=== PATIENT | male | born 1990 | race African-American/Black ===

== ENCOUNTER → 2019-02-07 | Outpatient (CLI) | payer OTHER ==
--- NOTE | 2019-02-07 09:20 | REP ---
MRI brain without contrast: History: Chronic headaches. Visual disturbances. . Comparison study: No comparison study. Technique: Axial and sagittal imaging planes are utilized for T1 and T2-weighted scans. Sequences include spin-echo, fast spin echo, FLAIR, and diffusion weighted sequences. MRI findings: No bony calvarial lesion is seen. Craniocervical junction and upper cervical cord are normal in appearance. There is no MR evidence of significant paranasal sinus disease. No intraorbital abnormality is seen. The lateral, third, and fourth ventricles are normal in size and position. Marques-white differentiation pattern is intact above and below the tentorium. There is no evidence of intracranial hemorrhage. No mass, infarction, extra-axial fluid collection or midline shift is seen. No abnormal white matter lesion is seen. Impression: Negative noncontrast brain MRI study. Electronically Signed by Yrn Velasco MD 02/07/2019 09:11 A
== END ==
LOC: M RAD 07:06
PROVIDERS: ATTEND Physician Assistant
DX: G44.89 Other headache syndrome (principal)

== ENCOUNTER 2020-07-12 20:24 | Emergency (ER) | payer OTHER ==
[~2020-07-12] VITALS: Ht 180.3 cm; Wt 96.3 kg
[2020-07-12 20:25] VITALS: BP 118/60
[2020-07-12] MEDS ORDERED: NORC1TAB7 PO (21:09)
[2020-07-12] MEDS ORDERED: NORCO, ANEXSIA 5/325MG TABLET (HYDROcodone/ACETAMINOPHEN) PO ONE (21:15)
--- NOTE | 2020-07-16 12:03 | REP ---
LEFT ANKLE X-RAY: HISTORY: Trauma. TECHNIQUE: AP, lateral, bilateral oblique views of the left ankle. FINDINGS: There is a relatively nondisplaced oblique fracture of the distal fibular metaphysis along with overlying soft tissue swelling. There also appears to be an avulsion fracture along the medial malleolus with associated swelling. No further acute fracture or dislocation identified. IMPRESSION: Soft tissue swelling and fractures as noted above. MTDD
== END 2020-07-12 21:20 | disposition home or self-care (01) ==
LOC: M ED 20:24
DX: S82.832A Other fracture of upper and lower end of left fibula, initial encounter for closed fracture (principal); X50.1XXA Overexertion from prolonged static or awkward postures, initial encounter; Y92.89 Other specified places as the place of occurrence of the external cause; Y93.9 Activity, unspecified; Y99.9 Unspecified external cause status; Z79.82 Long term (current) use of aspirin; Z79.899 Other long term (current) drug therapy

== ENCOUNTER 2020-07-21 12:56 | Day surgery (SDC) | payer OTHER ==
[~2020-07-21] VITALS: Ht 180.3 cm; Wt 95.7 kg
[~2020-07-21 12:56] MED LIST: LIDOCAINE 2% 100MG/5ML SDV (FOR ANES.) As Ordered ONE; NORC1TAB7 PO; ONDANSETRON 4MG/2ML VIAL As Ordered ONE; PHENYLephrine HCL 500 MCG/5 ML (100MCG/ML) SYRINGE (J2370) As Ordered ONE; ROCURONIUM BROMIDE 50 MG/5 ML VIAL As Ordered ONE; SUGAMMADEX SODIUM 500 MG/5 ML VIAL (BRIDION) As Ordered ONE; dexameTHASONE 4 MG/ML 1ML VIAL (J1100 PER 1MG) As Ordered ONE; fentaNYL 250 MCG/5 ML INJECTION (J3010) As Ordered ONE; propofoL 200 MG/20 ML VIAL As Ordered ONE
[2020-07-21] MEDS ORDERED: LIDOCAINE 1% MDV 20ML VIAL ONE ×2 (12:57)
[2020-07-21] MEDS ORDERED: dexameTHASONE 10MG/1ML VIAL PRES.FREE (J1100 PER 1MG) ONE ×2 (12:57)
[2020-07-21] MEDS ORDERED: ROPIvacaine 0.5% 30ML INJECTION (J2795 PER 1MG) ONE ×2 (12:57)
[2020-07-21] MEDS ORDERED: ceFAZolin 2 GM/D5W 50 ML IV BAG (J0690 PER 500MG) As Ordered ONE (13:25)
[2020-07-21] MEDS ORDERED: ceFAZolin SOD 2 GM in IV 1 EA IV ONE (14:00)
[2020-07-21] MEDS ORDERED: LR 1,000 ML IV ONE (14:00)
[2020-07-21] MEDS ORDERED: fentaNYL 100 MCG/2 ML INJECTION (J3010) As Ordered ONE (14:16)
[2020-07-21] MEDS ORDERED: MIDAZOLAM INJ 2MG/2ML VIAL (J2250 PER 1MG) As Ordered ONE (14:17)
[2020-07-21] MEDS: fentaNYL 100 MCG/2 ML INJECTION (J3010) IV PRN ×2 (14:32→14:35)
[2020-07-21] MEDS: MIDAZOLAM INJ 2MG/2ML VIAL (J2250 PER 1MG) IV PRN ×2 (14:32→14:35)
[2020-07-21] MEDS ORDERED: ACETAMINOPHEN 1000MG 100ML IV BTL (OFIRMEV) (J0131 PER 10MG) As Ordered ONE (16:13)
[2020-07-21] MEDS ORDERED: fentaNYL 100 MCG/2 ML INJECTION (J3010) IV PRN (17:45)
[2020-07-21] MEDS ORDERED: oxyCODONE 5MG TAB PO PRN ×3 (17:45→18:00)
[2020-07-21] MEDS ORDERED: LR 1,000 ML IV SCH ×2 (17:45→18:00)
[2020-07-21] MEDS ORDERED: ONDANSETRON 4MG/2ML VIAL IV PRN (17:45)
[2020-07-21 19:05] VITALS: BP 134/68
[2020-07-21] MEDS ORDERED: ACETAMINOPHEN 500 MG TAB PO SCH (22:00)
[2020-07-22] MEDS ORDERED: ASPIRIN 81 MG CHEW TABLET PO SCH (09:00)
--- NOTE | 2020-08-13 12:07 | RO ---
DATE OF OPERATION: 07/21/2020 PREOPERATIVE DIAGNOSIS: Left distal fibula fracture. POSTOPERATIVE DIAGNOSIS: Left distal fibula fracture. PROCEDURE: Open reduction, internal fixation, left ankle. SURGEON: Dianne Devries M.D. BRACE MAKER: Renetta Freeman ESTIMATED BLOOD LOSS: 25 mL. COMPLICATIONS: None. CONDITION: Stable to recovery. INDICATIONS: Sawyer Lockwood is a 30-year-old male who is status post a fall playing soccer. He sustained a distal fibula fracture which showed instability on gravity stress x-rays and was offered open reduction, internal fixation for his left ankle fracture. Informed consent was obtained in the office. He understands risks include, but are not limited to, infection, damage to nerves and blood vessels, continued pain and stiffness, need for additional procedures. DESCRIPTION OF PROCEDURE: Patient was met in the preoperative holding area, where the left lower extremity was marked at the correct operative side. He underwent a nerve block by the anesthesia team. He was placed in the supine position on the operating room table. A well-padded tourniquet was placed on the left upper thigh. The left lower extremity was prepped and draped in the normal sterile fashion. He received antibiotics within 60 minutes of incision. An official time-out was held, where the correct patient, operative side, and operative procedure were verified. Following this, the leg was exsanguinated and tourniquet was inflated to 250 mm of mercury. An incision was made over the posterolateral aspect of the fibula. Careful dissection to the level of the fracture was performed. Fracture was cleaned of hematomas and debris. It was reduced using a point of reduction forceps. A 3.5 mm lag screw was placed across the fracture with good compression and bite. X- rays in AP, lateral, and mortise views showed satisfactory reduction and lag screw placement. A 7-hole plate was selected and secured to the bone distally using a 3.5 mm screw and a 4.0 cancellous screw. Proximally it secured using 3.5 mm screws. An external rotation stress test and a Cotton exam were both performed, and the ankle mortise was found to be stable. Copious irrigation was performed. Periosteum was closed over the plate. Subcutaneous tissues were closed with 3-0 Vicryl and 3-0 nylon. Sterile dressing was applied followed by a well-padded splint. Patient was extubated and transferred to the recovery room in stable condition. PLAN: Patient will be nonweightbearing on the left lower extremity. He will be on aspirin for deep venous thrombosis (DVT) prophylaxis. I will see him back in 2 weeks for suture removal and cast placement. NIXON
--- NOTE | 2020-08-18 12:51 | REP ---
CT GUIDED L5 VERTEBRAL BODY BIOPSY: The procedure was performed under the direct supervision of Dr. Marques. 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 The risks and benefits of the procedure were explained to the patient and informed consent was obtained. The L5 vertebral body was localized using CT guidance. The skin was prepped and draped in a sterile fashion. 1% Lidocaine was used as a local anesthetic. Using CT guidance, a 17/18 gauge coaxial needle biopsy system was inserted and advanced into the lesion. Five core biopsy samples were obtained and sent to the lab. The patient tolerated the procedure well and there were no immediate complications. After the appropriate amount of monitored convalescent, the patient was discharged from the department. NIXON
== END 2020-07-21 19:09 | disposition home or self-care (01) ==
LOC: M SDC 12:56
PROVIDERS: ATTEND Orthopaedic Surgery
DX: S82.92XA Unspecified fracture of left lower leg, initial encounter for closed fracture (principal); W19.XXXA Unspecified fall, initial encounter; Y93.66 Activity, soccer; Y92.322 Soccer field as the place of occurrence of the external cause; Y99.9 Unspecified external cause status; Z91.81 History of falling
CPT/HCPCS: 27792; 64445; 76000; C1713; J0131; J0690; J1100; J2250; J2370; J2405; J2795; J3010

== ENCOUNTER 2020-08-06 06:05 | Day surgery (SDC) | payer OTHER ==
[~2020-08-06] VITALS: Ht 180.3 cm; Wt 93.4 kg
[~2020-08-06 06:05] MED LIST changes: -LIDOCAINE 2% 100MG/5ML SDV (FOR ANES.) As Ordered ONE; -ONDANSETRON 4MG/2ML VIAL As Ordered ONE; -PHENYLephrine HCL 500 MCG/5 ML (100MCG/ML) SYRINGE (J2370) As Ordered ONE; -ROCURONIUM BROMIDE 50 MG/5 ML VIAL As Ordered ONE; -SUGAMMADEX SODIUM 500 MG/5 ML VIAL (BRIDION) As Ordered ONE; -dexameTHASONE 4 MG/ML 1ML VIAL (J1100 PER 1MG) As Ordered ONE; -fentaNYL 250 MCG/5 ML INJECTION (J3010) As Ordered ONE; -propofoL 200 MG/20 ML VIAL As Ordered ONE
[2020-08-06] MEDS ORDERED: LIDOCAINE 1% MDV 20ML VIAL ONE (06:06)
[2020-08-06] MEDS ORDERED: ROPIvacaine 0.5% 30ML INJECTION (J2795 PER 1MG) ONE (06:06)
[2020-08-06] MEDS ORDERED: dexameTHASONE 10MG/1ML VIAL PRES.FREE (J1100 PER 1MG) ONE (06:06)
[2020-08-06] MEDS ORDERED: ECOT81TA5 PO (06:32)
[2020-08-06] MEDS ORDERED: OXYC-517 PO (06:32)
[2020-08-06] MEDS ORDERED: ACE65ERTAB PO (06:32)
[2020-08-06] MEDS ORDERED: DOCU100C16 PO (06:32)
[2020-08-06] MEDS ORDERED: MIDAZOLAM INJ 2MG/2ML VIAL (J2250 PER 1MG) As Ordered ONE ×2 (06:47→07:13)
[2020-08-06] MEDS ORDERED: fentaNYL 100 MCG/2 ML INJECTION (J3010) As Ordered ONE (06:47)
[2020-08-06] MEDS ORDERED: ceFAZolin 2 GM/D5W 50 ML IV BAG (J0690 PER 500MG) As Ordered ONE (06:48)
[2020-08-06] MEDS ORDERED: LR 1,000 ML IV ONE (07:00)
[2020-08-06] MEDS ORDERED: ceFAZolin SOD 2 GM in IV 1 EA IV ONE (07:00)
[2020-08-06] MEDS ORDERED: ROCURONIUM BROMIDE 50 MG/5 ML VIAL As Ordered ONE (07:12)
[2020-08-06] MEDS ORDERED: LIDOCAINE 2% 100MG/5ML SDV (FOR ANES.) As Ordered ONE (07:12)
[2020-08-06] MEDS ORDERED: fentaNYL 250 MCG/5 ML INJECTION (J3010) As Ordered ONE (07:13)
[2020-08-06] MEDS ORDERED: propofoL 200 MG/20 ML VIAL As Ordered ONE (07:14)
[2020-08-06] MEDS: fentaNYL 100 MCG/2 ML INJECTION (J3010) IV SCH ×2 (07:24→07:30)
[2020-08-06] MEDS: MIDAZOLAM INJ 2MG/2ML VIAL (J2250 PER 1MG) IV SCH ×2 (07:24→07:30)
[2020-08-06] MEDS ORDERED: KETOROLAC 60MG 2ML VIAL As Ordered ONE (08:17)
[2020-08-06] MEDS ORDERED: ONDANSETRON 4MG/2ML VIAL As Ordered ONE (08:17)
[2020-08-06] MEDS ORDERED: dexameTHASONE 4 MG/ML 1ML VIAL (J1100 PER 1MG) As Ordered ONE (08:17)
[2020-08-06] MEDS ORDERED: SUGAMMADEX SODIUM 500 MG/5 ML VIAL (BRIDION) As Ordered ONE (08:17)
[2020-08-06] MEDS ORDERED: MEPERIDINE INJ 25 MG/ML VIAL (J2175) IV PRN (09:30)
[2020-08-06] MEDS ORDERED: ONDANSETRON 4MG/2ML VIAL IV PRN (09:30)
[2020-08-06] MEDS ORDERED: LR 1,000 ML IV SCH ×2 (09:30→09:45)
[2020-08-06] MEDS ORDERED: METOCLOPRAMIDE INJ 10MG/2ML VIAL (J2765 PER 1) IV PRN (09:30)
[2020-08-06] MEDS ORDERED: fentaNYL 100 MCG/2 ML INJECTION (J3010) IV PRN (09:30)
[2020-08-06] MEDS ORDERED: oxyCODONE 5MG TAB PO PRN (09:30)
[2020-08-06 11:00] VITALS: BP 119/56
--- NOTE | 2020-08-19 14:18 | REP ---
FLUORO GUIDED STUDY: 08/06/20 at 7:15AM CLINICAL: Left ankle revision. TECHNIQUE: Intraoperative fluoroscopic imaging using portable C-ARM technique. FINDINGS: Patient is status post open reduction and fixation with stabilizing plate and screws through the distal fibula and single longer stabilizing screw through the fibula and tibial metaphysis. Total fluoroscopic time not given. IMPRESSION: Status post open reduction and fixation. NIXON
--- NOTE | 2020-08-24 07:53 | RO ---
DATE OF OPERATION: 08/06/2020 PREOPERATIVE DIAGNOSIS: Left ankle mortise instability status post ankle open reduction and internal fixation. POSTOPERATIVE DIAGNOSIS: Left ankle mortise instability status post ankle open reduction and internal fixation. PROCEDURES: Left ankle removal of hardware and placement of syndesmotic screw. SURGEON: Dianne Devries MD SENIOR PRODUCT ANALYST: GUANAKITO Freeman ESTIMATED BLOOD LOSS: 10 mL. ANESTHESIOLOGIST: RICARDO. COMPLICATIONS: None. CONDITION: Stable to the recovery room. INDICATIONS: Sawyer Rodriguez is a 30-year-old male who is two weeks out from a left distal fibula ORIF. Postoperative x-rays in the office showed slight widening of the ankle mortise medially and the decision was made to remove one screw and placed a syndesmotic screw. Risks and benefits of surgery were discussed with the patient in detail and include, but are not limited to infection, damage to nerves and blood vessels, continued pain and stiffness, need for additional procedures. Informed consent was obtained. PROCEDURE: The patient was met in the pre-operative holding area where the left lower extremity was marked as the correct operative site. He underwent a popliteal nerve block. He was taken to the operating room where the left lower extremity was prepped and draped in a normal sterile fashion. An official time- out was held where the correct patient, operative site, and operative procedure were verified. Antibiotics were given within 60 minutes prior to incision. A small area of the prior incision was opened in the mid portion of the incision. Careful dissection to the level of the plate was performed. A single 3.5-mm cortical screw was removed and a 4.0-mm syndesmotic screw was placed. It had great bite. I gently compressed the mortise while placing the screw. There was only slight widening on external rotation stress test and thus, it was not necessary for a periarticular clamp. Following the syndesmotic screw placement, external rotation stress test was stable. There was no widening of the ankle mortise. AP mortise and lateral films were satisfactory. Copious irrigation was performed. The skin was closed with 3-0 Vicryl and 3-0 nylon. The patient was placed into a sterile dressing and a well-padded splint. He was extubated and transferred to the recovery room in stable condition. PLAN: The patient will be non-weight bearing in the left lower extremity. I will see him back in two weeks for suture removal. He will be non-weight bearing for 10 weeks total. All of his questions were answered and he was in agreement with this plan. NIXON
== END 2020-08-06 11:05 | disposition home or self-care (01) ==
LOC: M SDC 06:05
PROVIDERS: ATTEND Orthopaedic Surgery
DX: S93.01XA Subluxation of right ankle joint, initial encounter (principal); X58.XXXA Exposure to other specified factors, initial encounter; Y92.89 Other specified places as the place of occurrence of the external cause; Y93.9 Activity, unspecified; Y99.9 Unspecified external cause status; Z79.82 Long term (current) use of aspirin
CPT/HCPCS: 20680; 27829; 64445; 76000; C1713; J0690; J1100; J1885; J2250; J2405; J2795; J3010